=== PATIENT | male | born 1985 | race Caucasian/White ===

== ENCOUNTER 2016-06-29 09:22 | Emergency (ER) | payer MEDICAID ==
[~2016-06-29] VITALS: Ht 177.8 cm; Wt 79.5 kg
[2016-06-29 09:26] VITALS: BP 133/84; PULSE 68; RESP 18; O2SAT 97
[2016-06-29] MEDS ORDERED: 0.9% Sodium Chloride Inhalation Solution BOTH_EYES ONE (09:40)
[2016-06-29] MEDS ORDERED: Tetracaine 0.5% 4 mL Ophthalmic Solution BOTH_EYES ONE (09:40)
[2016-06-29] MEDS ORDERED: Fluorescein 0.6 mg Ophthalmic Strip BOTH_EYES ONE (09:40)
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
[2016-06-29] MEDS ORDERED: Naphazoline/Pheniramine 5 mL Ophthalmic Solution BOTH_EYES PRN (13:20)
[2016-06-29] MEDS ORDERED: Gentamicin 0.3% 5 mL Ophthalmic Solution BOTH_EYES ONE (13:20)
[2016-06-29 13:38] VITALS: PULSE 55; RESP 14; O2SAT 99
[2016-06-29 14:22] VITALS: BP 133/84; PULSE 55; RESP 14; O2SAT 99
== END 2016-06-29 14:05 | disposition home or self-care (01) ==
LOC: SED 09:22
DX: T59.3X4A Toxic effect of lacrimogenic gas, undetermined, initial encounter (principal); S05.01XA Injury of conjunctiva and corneal abrasion without foreign body, right eye, initial encounter; X58.XXXA Exposure to other specified factors, initial encounter; Y93.89 Activity, other specified; Y92.89 Other specified places as the place of occurrence of the external cause; Y99.0 Civilian activity done for income or pay; Z88.0 Allergy status to penicillin; Z91.013 Allergy to seafood; Z91.018 Allergy to other foods